=== PATIENT | male | born 1985 | race Two or more races ===

== ENCOUNTER 2017-02-19 16:50 | Emergency (ER) | payer OTHER ==
[~2017-02-19] VITALS: Ht 172.7 cm; Wt 107.5 kg
--- NOTE | 2017-02-19 17:45 | NUR ---
DR RODRIGUEZ AT BEDSIDE TO EVALUATE PT. MEDICATED PER MD ORDER.
--- NOTE | 2017-02-19 17:50 | NUR ---
RAPID STREP SENT.
[2017-02-19] MEDS: IBUPROFEN 800 MG TABLET PO ONE (17:55)
[2017-02-19] MEDS: ACETAMINOPHEN ES 500 MG TABLET PO ONE (17:56)
[2017-02-19] MEDS ORDERED: ACETAMINOPHEN ES 500 MG TABLET ONE (18:06)
[2017-02-19] MEDS ORDERED: IBUPROFEN 800 MG TABLET ONE (18:06)
[2017-02-19] MEDS: diphenhydrAMINE 25 MG CAP PO ONE (18:49)
[2017-02-19] MEDS ORDERED: diphenhydrAMINE 25 MG CAP PO ONE (19:01)
[2017-02-19 19:02] LABS: *BILIRUBIN,URIN NEGATIVE (NEGATIVE); *BLOOD, URINE NEGATIVE (NEGATIVE); *CLARITY,URINE CLEAR (CLEAR); *COLOR,URINE YELLOW (YELLOW); *KETONES,URINE NEGATIVE (NEGATIVE); *PROTEIN,URINE 1+ (NEGATIVE); LEUKOCYTE ESTERASE ,URINE NEGATIVE (NEGATIVE); NITRITE, URINE NEGATIVE (NEGATIVE); PH,URINE 8.5 (5.0-8.0); UGLUCOSE NEGATIVE (NEGATIVE)
[2017-02-19 19:16] LABS: WBC,URINE NONE SEEN /HPF (0-3)
[2017-02-19 19:17] LABS: MUCUS,URINE FEW /LPF (0-FEW)
--- NOTE | 2017-02-19 19:19 | NUR ---
CRISTIANAR TO ERIN FISCHER
[2017-02-19] MEDS: IV NORMAL SALINE 1000 ML BAG IV ONE (19:42)
[2017-02-19] MEDS: DEXAMETHASONE SOD PHOSPHATE 4 MG INJ IV ONE (19:48)
[2017-02-19 19:51] LABS: BASOPHILS % (AUTO) 0.6 % (0.0-2.0); EOSINOPHILS # (AUTO) 0.1 K/uL (0.0-0.7); EOSINOPHILS % (AUTO) 2.2 % (0.0-7.0); HEMATOCRIT 47.4 % (40-50); LYMPHOCYTES # (AUTO) 0.5 K/UL (0.8-4.8); LYMPHOCYTES % (AUTO) 8.2 % (20.5-51.5); MEAN CORPUSCULAR HEMOGLOBIN 29.8 UUG (27.0-31.0); MEAN CORPUSCULAR HGB CONC 34 g/dL (32.0-37.0); MEAN CORPUSCULAR VOLUME 88.1 FL (82.0-92.0); MONOCYTES # (AUTO) 0.8 K/UL (0.1-1.30); NEUTROPHILS # (AUTO) 4.5 K/UL (1.8-8.9); PLATELET COUNT (AUTO) 211 K/UL (150-450); RED BLOOD CELL COUNT(AUTO) 5.38 MIL/UL (4.7-6.1); WHITE BLOOD COUNT (AUTO) 5.9 K/UL (4.0-11.2)
[2017-02-19] MEDS ORDERED: DEXAMETHASONE SOD PHOSPHATE 10 MG INJ ONE (19:56)
[2017-02-19 20:00] LABS: CREATININE 1.2 mg/dL (0.6-1.3); POTASSIUM 3.6 mmol/L (3.5-5.1)
[2017-02-19] MEDS: CLINDAMYCIN PHOSPHATE IV 600 MG in IV DEXTROSE 5% 100 ML IV ONE (20:08)
[2017-02-19 20:15] LABS: BILIRUBIN,DIRECT 0.2 mg/dL (0.0-0.2); BILIRUBIN,TOTAL 1.4 mg/dL (0.2-1.0); TOTAL PROTEIN, SERUM 7.7 g/dL (6.4-8.2)
--- NOTE | 2017-02-19 20:27 | NUR ---
Patient discharged to home in stable conditon. Written and verbal after care instructions given. Patient verbalizes understanding of instructions.
== END 2017-02-19 20:36 | disposition home or self-care (01) ==
LOC: ER 16:50
DX: R50.9 Fever, unspecified (principal); E86.0 Dehydration; G89.29 Other chronic pain; M54.5 Low back pain; J02.9 Acute pharyngitis, unspecified; H92.01 Otalgia, right ear
CPT/HCPCS: 36415; 70030-TC; 71010; 83605; 85025; 86403; 87040; 87070; 87086; A4663; J1100; J3490; J7030; J7060; Q0163